=== PATIENT | female | born 1965 | race Caucasian/White ===

== ENCOUNTER 2019-01-30 21:32 | Emergency (ER) | payer MEDICAID ==
[~2019-01-30] VITALS: Ht 162.6 cm; Wt 57.8 kg
[2019-01-30 21:37] VITALS: BP 124/96
--- NOTE | 2019-01-30 22:22 | NUR ---
Throat culture swab collected and hand carried to the lab.
[2019-01-30] MEDS ORDERED: ALBU8.5H8 INH (22:42)
== END 2019-01-30 22:48 | disposition home or self-care (01) ==
LOC: ER 21:33
DX: J06.9 Acute upper respiratory infection, unspecified (principal); Z88.0 Allergy status to penicillin; Z79.899 Other long term (current) drug therapy
CPT/HCPCS: 87081; 87880; 99283